=== PATIENT | female | born 1930 | race Asian ===

== ENCOUNTER 2018-09-12 11:52 | Day surgery (SDC) | payer MEDICARE, OTHER ==
[~2018-09-12 11:52] MED LIST: PROPOFOL 200 MG INJ
[2018-09-12] MEDS ORDERED: LIDOCAINE 100 MG SYRINGE (13:56)
[2018-09-12] MEDS ORDERED: PROPOFOL 40 ML (13:56)
[2018-09-12] MEDS ORDERED: ONDANSETRON 4 MG INJ IV (14:30)
[2018-09-12] MEDS ORDERED: hydrALAzine 20 MG INJ IV (14:30)
[2018-09-12] MEDS ORDERED: LABETALOL HCL 20MG INJ IV (14:30)
[2018-09-12] MEDS ORDERED: METOCLOPRAMIDE 10 MG INJ IV (14:30)
== END 2018-09-12 16:45 | disposition home or self-care (01) ==
LOC: GIL 11:52
DX: K92.1 Melena (principal); D12.2 Benign neoplasm of ascending colon; D12.3 Benign neoplasm of transverse colon; K64.8 Other hemorrhoids; I10 Essential (primary) hypertension; E78.5 Hyperlipidemia, unspecified; Z86.73 Personal history of transient ischemic attack (TIA), and cerebral infarction without residual deficits; I48.91 Unspecified atrial fibrillation
CPT/HCPCS: 45380; 88305